=== PATIENT | female | born 1985 | race Two or more races ===

== ENCOUNTER 2024-08-26 14:30 | Inpatient (IN) | payer OTHER ==
[~2024-08-26] VITALS: Ht 154.9 cm; Wt 71.7 kg
[2024-09-10 09:30] VITALS: BP 160/90
[2024-09-10] MEDS ORDERED: RINGERS SOLUTION,LACTATED 1,000 ML IV SCH (10:15)
[2024-09-10 11:22] VITALS: BP 129/84; O2SAT 98
[2024-09-10 11:27] LABS: HEMOGLOBIN 13.1 g/dL (12.0-15.00); MEAN CELL VOLUME 95.6 fL (80.00-100.00); MEAN CORPUSCULAR HEMOGLOBIN 32.9 pg (27.00-32.0); MEAN CORPUSCULAR HGB CONC 34.3 g/dl (32.0-36.0); PLATELET COUNT 233 K/uL (150-450); RED BLOOD COUNT 3.97 M/uL (4.00-6.00); RED CELL DISTRIBUTION WIDTH 12.8 % (11.5-14.5)
[2024-09-10 11:54] LABS: INR 0.94; PARTIAL THROMBOPLASTIN TIME 27.1 SECONDS (22.0-34.0); PROTHROMBIN TIME 10.3 SECONDS (9.0-11.5)
[2024-09-10 12:05] LABS: URINE APPEARANCE Clear; URINE BILIRRUBIN Negative (NEGATIVE); URINE BLOOD Negative; URINE COLOR Yellow; URINE GLUCOSE Negative (NEGATIVE); URINE KETONE Negative (NEGATIVE); URINE LEUKOCYTE Trace; URINE NITRATE Negative; URINE PROTEIN Negative (NEGATIVE); URINE UROBILINOGEN 0.2 E.U./dl
[2024-09-10 12:09] LABS: URINE BACTERIA 855.3 uL (0.0-1933); URINE EPITHELIAL CELLS 34.9 uL (0.0-38.8); URINE WBC 51.7 uL (0.0-23.2)
[2024-09-10 12:19] LABS: URINE RBC 0.8 uL (0.0-20.8)
[2024-09-10 12:24] LABS: ALBUMIN 2.9 gm/dL (3.4-5.0); BILIRUBIN TOTAL 0.2 mg/dL (0.3-1.2); CALCIUM 9.4 mg/dL (8.5-10.1); CREATININE SERUM 0.55 mg/dL (0.55-1.02); GFR 124.37; GLOBULINA 4.3 G/DL (2.4-3.5); POTASSIUM 4.3 mEq/L (3.5-5.1); TOTAL PROTEIN 7.2 gm/dL (6.4-8.2)
[2024-09-10 15:16] VITALS: BP 132/78
[2024-09-10] MEDS ORDERED: MISOPROSTOL 25 MCG TABLET ONE (16:24)
[2024-09-10] MEDS ORDERED: MISOPROSTOL 25 MCG TABLET VAG NR (16:45)
[2024-09-10 19:20] VITALS: BP 141/91
[2024-09-10] MEDS ORDERED: MORPHINE SULFATE 4 MG/ML VIAL IV PRN (20:30)
[2024-09-10 23:52] VITALS: BP 136/78
[2024-09-11] VITALS (7 sets, daily range): BP systolic 137–147; BP diastolic 71–91
[2024-09-11] MEDS ORDERED: OXYTOCIN 20 UNITS/500ML RL PIGGYBAG IV ONE (09:33)
[2024-09-11] MEDS ORDERED: OXYTOCIN 500 ML IV SCH (10:00)
[2024-09-11] MEDS ORDERED: ERYTHROMYCIN BASE OPHT 1GM EACH TUBE OP ONE ×2 (11:08→13:15)
[2024-09-11] MEDS ORDERED: OXYTOCIN 20 UNITS/1000ML RL PIGGYBAG IV ONE (11:08)
[2024-09-11] MEDS ORDERED: LIDOCAINE HCL 1% 10ML VIAL ONE (11:08)
[2024-09-11] MEDS ORDERED: CHLORHEXIDINE GLUCONATE 120 ML BOTTLE TOP ONE ×3 (11:08→14:00)
[2024-09-11] MEDS ORDERED: PRENATAL + DHA1 EAC1 PO (12:08)
[2024-09-11] MEDS ORDERED: OXYTOCIN 1,000 ML IV SCH (14:00)
[2024-09-11] MEDS ORDERED: KETOROLAC TROMETHAMINE 10 MG TABLET PO PRN (16:00)
[2024-09-12 00:18] VITALS: BP 123/79
[2024-09-12 06:45] LABS: HEMATOCRIT 29.3 % (36.0-45.00); HEMOGLOBIN 10.5 g/dL (12.0-15.00); MEAN CELL VOLUME 95.4 fL (80.00-100.00); MEAN CORPUSCULAR HEMOGLOBIN 34.1 pg (27.00-32.0); MEAN CORPUSCULAR HGB CONC 35.8 g/dl (32.0-36.0); PLATELET COUNT 205 K/uL (150-450); RED BLOOD COUNT 3.08 M/uL (4.00-6.00); RED CELL DISTRIBUTION WIDTH 13.4 % (11.5-14.5)
[2024-09-12 07:24] LABS: ALBUMIN 2.2 gm/dL (3.4-5.0); BILIRUBIN TOTAL 0.27 mg/dL (0.3-1.2); CALCIUM 8.6 mg/dL (8.5-10.1); CREATININE SERUM 0.56 mg/dL (0.55-1.02); GFR 121.81; GLOBULINA 3.2 G/DL (2.4-3.5); POTASSIUM 4.3 mEq/L (3.5-5.1); TOTAL PROTEIN 5.4 gm/dL (6.4-8.2)
[2024-09-12 08:16] VITALS: BP 117/79
[2024-09-12 16:51] VITALS: BP 133/91
[2024-09-13] VITALS: BP 138/80
[2024-09-13 08:57] VITALS: BP 135/88
== END 2024-09-13 10:32 | disposition home or self-care (01) | DRG 807 ==
LOC: LDR 09-10 09:46 → OB/GYN 09-11 16:56 → MEDI 09-15 14:30
PROVIDERS: Obstetrics & Gynecology; ADMIT Obstetrics & Gynecology; ATTEND Obstetrics & Gynecology
PROC: 3E0P7VZ Introduction of Hormone into Female Reproductive, Via Natural or Artificial Opening (ICD-10-PCS; 2024-09-10)
PROC: 4A1HXCZ Monitoring of Products of Conception, Cardiac Rate, External Approach (ICD-10-PCS; 2024-09-10)
PROC: 10E0XZZ Delivery of Products of Conception, External Approach (ICD-10-PCS; principal; 2024-09-11)
PROC: 0KQM0ZZ Repair Perineum Muscle, Open Approach (ICD-10-PCS; 2024-09-11)
PROC: 3E033VJ Introduction of Other Hormone into Peripheral Vein, Percutaneous Approach (ICD-10-PCS; 2024-09-11)
DX: O70.1 Second degree perineal laceration during delivery (principal); Z37.0 Single live birth; Z3A.39 39 weeks gestation of pregnancy

== ENCOUNTER 2024-09-10 09:04 | Outpatient (CLI) | payer OTHER ==
[2024-09-11] MEDS ORDERED: PRENATAL + DHA1 EAC1 PO (12:08)
== END 2024-09-10 09:50 | disposition still patient (30) ==
LOC: NST 09:04
PROVIDERS: ATTEND Obstetrics & Gynecology Maternal & Fetal Medicine
DX: Z3A.39 39 weeks gestation of pregnancy (principal)